=== PATIENT | male | born 1940 ===

== ENCOUNTER 2018-10-24 09:39 | Day surgery (SDC) | payer OTHER ==
[2018-10-24] MEDS ORDERED: LR 1,000 ML IV ONE (09:53)
[2018-10-24] MEDS ORDERED: DEXAMETHASONE 4 MG/ML VIAL IVP ONE (10:15)
--- NOTE | 2018-10-24 10:16 | PDHPUP ---
History & Physical Update H&P update statement: This history and physical update is based on an assessment of the patient which was completed after admission or registration (within 24 hours), but prior to the surgery/procedure. H&P update: H&P reviewed & patient examined, no change in patient's condition since H&P completed
--- NOTE | 2018-10-24 10:18 | PDANEPAE ---
ANE History of Present Illness impacted molar ANE Past Medical History - Cardiovascular History Hx Hypertension: No Hx Arrhythmias: No Hx Chest Pain: No Hx Coronary Artery / Peripheral Vascular Disease: No Hx CHF / Valvular Disease: No Hx Palpitations: No - Pulmonary History Hx COPD: No Hx Asthma/Reactive Airway Disease: No Hx Recent Upper Respiratory Infection: No Hx Oxygen in Use at Home: No Hx Sleep Apnea: No Sleep Apnea Screening Result - Last Documented: Negative - Neurologic History Hx Cerebrovascular Accident: No Hx Seizures: No Hx Dementia: No - Endocrine History Hx Diabetes: No Hypothyroid: No Hyperthyroid: No Obesity: no - Renal History Hx Renal Disorders: Yes Renal History Comment: BPH - Liver History Hx Hepatic Disorders: No - Neurological & Psychiatric Hx Hx Neurological and Psychiatric Disorders: No - Cancer History Hx Cancer: No - Congenital Disorder History Hx Congenital Disorders: No - GI History GERD: no Hx Gastrointestinal Disorders: No - Other Health History Other Health History: EXTRACTION OF WISDOM TOOTH 4 YRS AGO,[employer]GEON HAD TRIED TO REMOVE IN OFFICE WITHOUT SUCCESS. PREV DIZZINESS PLACED ON DIABETIC HAS TAKEN DIURETIC PAST 5 YRS. CHRONIC EAR WAX - Chronic Pain History Chronic Pain: Yes (DENTAL) - Surgical History Prior Surgeries: LT MASTOIDECTOMY. LT EAR ANE Review of Systems Review of systems is: negative Review of Systems: - Exercise capacity METS (RN): 6 METS ANE Patient History - Allergies Allergies/Adverse Reactions: No Known Allergies Allergy (Unverified 10/23/18 17:01) - Home Medications Home medications: home medication list seen and reviewed Home Medications: ACETAMINOPHEN DAILY 10/23/18 [Last Taken 2 Days Ago ~10/22/18] Amoxicillin TID 10/23/18 [Last Taken 3 Days Ago ~10/21/18] Clindagel TID 10/23/18 [Last Taken 10/24/18 06:30] HCTZ (*) DAILY 10/23/18 [Last Taken 1 Day Ago ~10/23/18] Herbals/Supplements -Info Only DAILY 10/23/18 [Last Taken 1 Day Ago ~10/23/18] Metamucil DAILY 10/23/18 [Last Taken 1 Day Ago ~10/23/18] Tamsulosin HCl DAILY PRN 10/23/18 [Last Taken 1 Week Ago ~10/17/18] - NPO status NPO Status: no food or drink >8 hours NPO Since - Liquids (Date): 10/24/18 NPO Since - Liquids (Time): 09:00 NPO Since - Solids (Date): 10/23/18 NPO Since - Solids (Time): 21:00 - Anes Hx Anes Hx: no prior problems - Smoking Hx Smoking Status: Never smoked Marijuana use: No - Alcohol Use Alcohol Use: Rarely - Family Anes Hx Family Anes Hx: none ANE Labs/Vital Signs - Vital Signs Blood Pressure: 135/100 Heart Rate: 63 Respiratory Rate: 16 O2 Sat (%): 95 Height: 179.07 cm Weight: 67.132 kg ANE Physical Exam - Airway Neck exam: FROM Mallampati Score: Class 2 Mouth exam: normal dental/mouth exam - Pulmonary Pulmonary: no respiratory distress, clear to auscultation - Cardiovascular Cardiovascular: regular rate and rhythym, no murmur, rub, or gallop - ASA Status ASA Status: II ANE Anesthesia Plan Anesthesia Plan: general endotracheal anesthesia
[2018-10-24] MEDS ORDERED: LIDOCAINE 2% 5 ML SDV ONE (10:26)
[2018-10-24] MEDS ORDERED: fentaNYL 100 MCG/2 ML INJ ONE (10:26)
[2018-10-24] MEDS ORDERED: PROPOFOL 200 MG/20 ML VIAL ONE (10:26)
[2018-10-24] MEDS ORDERED: ceFAZolin 2 GM/DEXTROSE 100 ML IV ONE (10:30)
[2018-10-24] MEDS ORDERED: LIDO/EPI 1% **Not for Epidural 20 ML MDV ONE (10:36)
[2018-10-24] MEDS ORDERED: CHLORHEXIDINE GLUCONATE 15 ML UDL ONE (10:44)
[2018-10-24] MEDS ORDERED: SUCCINYLCHOLINE CHLORIDE 200 MG/10 ML SYR IVP ONE (10:48)
[2018-10-24] MEDS ORDERED: ePHEDrine SULFATE 25 MG/5 ML SYR ONE (11:11)
[2018-10-24] MEDS ORDERED: fentaNYL 100 MCG/2 ML INJ IVP PRN (11:19)
[2018-10-24] MEDS ORDERED: NALOXONE HCL 0.4 MG/ML INJ IVP PRN (11:19)
--- NOTE | 2018-10-24 11:20 | POSTANESTH ---
Post Anesthetic Evaluation Cardiovascular Status: Normal, Stable Respiratory Status: Normal, Stable Level of Consciousness/Mental Status: Can Participate in Eval, Moderately Sleepy Pain Control: Adequate, Prn Tx Ordered Nausea/Vomiting Control: Adequate, Prn Tx Ordered Complications Possibly Related to Anesthesia: None Noted
[2018-10-24] MEDS ORDERED: ONDANSETRON 4 MG/2 ML VIAL ONE (12:08)
[2018-10-24] MEDS ORDERED: SUGAMMADEX SODIUM 200 MG/2 ML VIAL IVP ONE (12:08)
--- NOTE | 2018-10-24 12:31 | POSTOPPROG ---
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
[2018-10-24 14:40] VITALS: BP 150/99
== END 2018-10-24 14:23 | disposition home or self-care (01) ==
LOC: FSGY 09:39
PROVIDERS: ATTEND Dentist General Practice
PROC: 0CTW0Z0 Resection of Upper Tooth, Single, Open Approach (ICD-10-PCS; principal; 2018-10-24 12:30)
DX: K01.1 Impacted teeth (principal); K03.5 Ankylosis of teeth; N13.8 Other obstructive and reflux uropathy; N40.1 Benign prostatic hyperplasia with lower urinary tract symptoms; E78.5 Hyperlipidemia, unspecified
CPT/HCPCS: J0330; J0690; J1100; J2405; J2704; J3010